=== PATIENT | male | born 1940 | race Caucasian/White ===

== ENCOUNTER 2016-11-09 08:43 | Inpatient (IN) | payer MEDICARE, OTHER ==
--- NOTE | ~2016-11-09 | OP ---
Record Of Operation [facility] [address] [place]. [address] NAME: LISA ARIZA : 38 STATUS : ADM IN PAT#: [id number] AGE: 76 ADM/REG DATE : 11/09/16 MR#: [id number] REPORT SERV DATE: 11/11/16 DICTATED BY: BEAN HAAS DATE: 11/11/16 REPORT STATUS : Draft TRANSCRIBED BY: MODL DATE: 11/11/16 DATE OF PROCEDURE: PROCEDURE: Small bowel enteroscopy. INDICATION: Upper GI bleed. MEDICATIONS: Propofol. DECORATIVE GREENS CUTTER: Bean Haas M.D. COMPLICATIONS: None. HISTORY: This 76-year-old man has a prior history of gastrointestinal bleeding. He presented this time two days ago with hematemesis, melena, anemia requiring transfusion, and transient hemodynamic impairment. An EGD was performed 48 hours ago and revealed no blood in the upper GI tract. There was marked malrotation of the stomach suspicious for a large hiatal hernia although the stomach did not appear to be intrathoracic on a barium study. We saw little bit of gastritis and a few linear erosions in the body of the stomach but no bleeding lesion was apparent and the bulb and descending duodenum appeared to be normal. He had some rebleeding last night with further drop in his hemoglobin but no real hemodynamic impairment. We went ahead and got a bleeding scan which suggested a proximal small bowel bleed. Arteriography was attempted but there was retained barium from an upper GI study he had earlier in the day, and the examination was very limited. There did not appear to be any active bleeding, and no therapeutic effort was made. He has now received a total of 7 units of packed red blood cells and his hemoglobin is up to 8 which has been his baseline. We decided to repeat endoscopic examination with a long enteroscope to try to make sure there is not anything further down the small bowel. The potential risks, including bleeding, medication reaction, perforation, or missed lesion were reviewed, and the patient elected to proceed. FINDINGS: Initially we passed the upper endoscope but then changed to a small-bowel enteroscope. Upon withdrawal of that instrument, we finally were able to locate the lesion at the apex of the duodenal bulb. We replaced the standard upper endoscope and examined it further before deciding it was not amenable to endoscopic therapy. FINDINGS: Are as below. 1. Esophagus-normal. 2. Stomach-notable for marked mal-rotation of the stomach. The cardiac impression is noted with a hyperdynamic heart beat in the distal antrum. This is suspicious for an intrathoracic stomach, however, barium study did not reveal stomach to be in the thorax. Some antral gastritis is present. The previously noted erosions were not seen. There was no blood in the stomach. A retroflex view of the GE junction was otherwise normal. 3. Duodenum: We noted an ulcer which was endoscopically photographed at the apex of the Record Of Operation [address] [address] NAME: LISA ARIZA : 38 STATUS : ADM IN PAT#: [id number] AGE: 76 ADM/REG DATE : 11/09/16 MR#: [id number] REPORT SERV DATE: 11/11/16 DICTATED BY: BEAN HAAS DATE: 11/11/16 REPORT STATUS : Draft TRANSCRIBED BY: MODL DATE: 11/11/16 duodenal bulb. It measured about 2 cm. It was fairly deep, and a visible vessel was seen. It was very oblique and initially could not be seen with a standard gastroscope and only with the enteroscope. When we replaced the gastroscope, we were able to find it but not really achieve adequate endoscopic access for therapeutic endeavors such as placing a clip. In fact, I feared that we may actually cause bleeding so no further therapy was done. 4. Jejunum: Examination to the mid-jejunum revealed no blood or bleeding lesion. IMPRESSION: Bleeding duodenal ulcer which has now stopped but after a total transfusion of 7 units of packed red blood cells. RECOMMENDATIONS: 1. Clear liquids for now. 2. Protonix infusion. 3. Keep arteriogram sheath in overnight. If he has further bleeding, I would proceed with therapeutic angiographic embolization. 4. Surgical intervention failing that. /MODL Bean Haas M.D. / [id number] CC: Anastasiya Ackerman M.D.
--- NOTE | ~2016-11-09 | CN ---
Consultation Report [facility] [address] [place]. [address] NAME: LISA ARIZA : 38 STATUS : ADM IN [facility]#: [id number] AGE: 76 ADM/REG DATE : 11/09/16 MR#: [id number] REPORT SERV DATE: 11/10/16 DICTATED BY: BOBBY MONTANA III DATE: 11/09/16 REPORT STATUS : Draft TRANSCRIBED BY: MODJolynn DATE: 11/09/16 CONSULTATION DATE OF CONSULTATION: 11/09/2016 CONSULTING PHYSICIAN: Martin Mcdaniel M.D. REASON FOR CONSULTATION: Anemia. HISTORY OF PRESENT ILLNESS: Mr. Ariza is a 76-year-old man who has a history of chronic GI blood loss who notes he developed one day of a large amount of bloody vomit as well as blood in his stool. He presented to the emergency department and was found to have a low hemoglobin of 4.9. He was admitted for further workup. An EGD was performed but did not find any evidence of active bleeding. Mr. Ariza notes that he has chronic severe acid reflux but this has been better in the past couple of weeks. He denies any recent weight loss. He says his appetite has been regular, and he does not drink alcohol excessively. PAST MEDICAL HISTORY: 1. Chronic kidney disease. 2. Diabetes. 3. Hyperlipidemia. MEDICATIONS: Current medications are per the home med list and were reviewed. ALLERGIES: NO KNOWN DRUG ALLERGIES. FAMILY HISTORY: Negative for any blood disorder that he is aware of. SOCIAL HISTORY: Negative for any alcohol abuse. He does smoke. REVIEW OF SYSTEMS: A comprehensive review of systems was performed and is negative unless noted in the HPI. PHYSICAL EXAMINATION: VITAL SIGNS: Blood pressure is 114/46, temperature is 97.5, pulse is 69, respiratory rate is 15. GENERAL: A well-developed elderly man in no acute distress. HEENT: Eyes: Pupils are round and reactive to light. There is no scleral icterus. Oropharynx is pink and moist. No oral lesions. NECK: Supple with no masses or thyroid enlargement. No JVD. CARDIOVASCULAR: Regular rate and rhythm. There is no peripheral edema. LUNGS: Clear to auscultation bilaterally with normal respiratory effort. ABDOMEN: Soft, nondistended, nontender with no hepatosplenomegaly. SKIN: Warm and dry with good skin turgor. There is no jaundice. Consultation Report [facility] [address] [place]. [address] NAME: LISA ARIZA : 38 STATUS : ADM IN PAT#: [id number] AGE: 76 ADM/REG DATE : 11/09/16 MR#: [id number] REPORT SERV DATE: 11/10/16 DICTATED BY: BOBBY MONTANA III DATE: 11/09/16 REPORT STATUS : Draft TRANSCRIBED BY: MODL DATE: 11/09/16 PSYCH: He is alert, oriented, and comprehends our conversation with normal judgment and affect. LABORATORY DATA: His admission labs were reviewed. The GI notes were reviewed. ASSESSMENT AND PLAN: Anemia. We will check vitamin levels as well as LDH and direct Sergio test and reticulocyte count. We will follow H and H, and transfuse as needed. We will continue to follow Mr. Ariza while he is an inpatient. BMA/MARBELLA Bobby Montana III, M.D. / [id number] CC: Anastasiya Ackerman M.D.
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
--- NOTE | ~2016-11-09 | CN ---
Consultation Report [address] [place]. [address] NAME: LISA ARIZA : 38 STATUS : ADM IN PAT#: [id number] AGE: 76 ADM/REG DATE : 11/09/16 MR#: [id number] REPORT SERV DATE: 11/09/16 DICTATED BY: BEAN HAAS DATE: 11/09/16 REPORT STATUS : Draft TRANSCRIBED BY: MODL DATE: 11/09/16 INPATIENT CONSULTATION DATE OF CONSULTATION: 11/09/2016 HISTORY OF PRESENT ILLNESS: This is a 76-year-old man who I am asked to see for nausea, vomiting, hematemesis, suspicious for acute bleeding. This gentleman is known from prior evaluation. He has a prior history of Helicobacter gastritis, peptic ulcer disease, and a large hiatal hernia with prior partial gastric volvulus. He is also chronically anemic with a baseline hemoglobin of about 8. He got sick this morning and vomited up some dark material a couple of times. His stools have been chronically black on iron therapy. He is on Plavix as well. When he presented to the emergency room, his hemoglobin was 4.9. Orders for transfusion were entered, but he has not yet been transfused as there has been some autoantibodies preventing transfusion. He is given a liter of crystalloid and he is now hemodynamically stable with blood pressure 129/65, pulse 67. PAST MEDICAL HISTORY: 1. Peptic ulcer disease. 2. History of Helicobacter pylori gastritis. 3. Iron deficiency anemia. 4. Adenomatous colon polyps. 5. Coronary artery disease. 6. Nephrolithiasis. 7. Hyperlipidemia. 8. CVA in 2012. 9. Renal cell cancer. 10.Chronic kidney disease. 11.COPD. 12.BPH. 13.Insulin-dependent diabetes. 14.Depression. PAST SURGICAL HISTORY: Status post CABG 2013 status post right nephrectomy, status post cholecystectomy by Dr. Acuna. MEDICATIONS: Reviewed and include Plavix as well as a proton pump. ALLERGIES: NO KNOWN DRUG ALLERGIES. FAMILY HISTORY: No GI malignancies. SOCIAL HISTORY: He is and retired. He does not abuse alcohol. He continues to Consultation Report [address] [place]. [address] NAME: LISA ARIZA : 38 STATUS : ADM IN PAT#: [id number] AGE: 76 ADM/REG DATE : 11/09/16 MR#: [id number] REPORT SERV DATE: 11/09/16 DICTATED BY: BEAN HAAS DATE: 11/09/16 REPORT STATUS : Draft TRANSCRIBED BY: MARBELLA DATE: 11/09/16 smoke. REVIEW OF SYSTEMS: Otherwise unremarkable for constitutional, endocrine, neurologic, psychiatric, ocular, ENT, pulmonary, cardiovascular, GI, , or rheumatologic symptoms except for as noted above. PHYSICAL EXAMINATION: GENERAL: He is alert and oriented, resting comfortably in bed. VITAL SIGNS: Blood pressure 139/65, pulse 67. LUNGS: Notable for decreased breath sounds over all lung andrade. ABDOMEN: Soft, nontender, without organomegaly. EXTREMITIES: No edema. LABORATORY DATA: Sodium 144, potassium 4.4, BUN 71, creatinine 1.91, albumin 2.1, and hemoglobin 4.9, compared to a baseline hemoglobin of 8 last month. INR 1.3. White count normal. PRIOR ENDOSCOPIES: EGD 10/12/2014-this was also in the setting of a subacute bleed and revealed a large hiatal hernia with some gastric torsion and a superficial 8 mm duodenal ulcer. EGD 03/04/2013, revealed hiatal hernia, gastritis, normal small bowel biopsy. Colonoscopy 03/04/2013, revealed a fair bowel prep, internal hemorrhoids, and a cecal adenoma, which was removed. RADIOGRAPHIC STUDIES: Upper GI in 2014 revealed a partial gastric volvulus. IMPRESSION: Large hiatal hernia with prior history of partial gastric volvulus and recent hematemesis, now with hemodynamic stability. RECOMMENDATIONS: We will proceed with EGD later today. /MARBELLA Bean Haas M.D. / [id number] CC: Martin Mcdaniel M.D. Anastasiya Lomas M.D.
--- NOTE | ~2016-11-09 | DS ---
Discharge Summary [facility] [address] [place]. [address] NAME: LISA ARIZA : 38 STATUS : DIS IN PAT#: [id number] AGE: 76 ADM/REG DATE : 11/09/16 MR#: [id number] REPORT SERV DATE: 11/17/16 DICTATED BY: BREE REDDY DATE: 11/16/16 REPORT STATUS : Draft TRANSCRIBED BY: MODL DATE: 11/16/16 ADMISSION DATE: 11/09/2016 DISCHARGE DATE: 11/16/2016 The patient is a 76-year-old male with a history of hypertension, diabetes type 2, and CKD who presented to the emergency room with complaints of hematemesis and hematochezia, and was subsequently admitted and managed in the ICU. For further details, please refer to H and P dictated by Dr. Mcdaniel on November 10, 2016. HOSPITAL COURSE: The patient was admitted on the and managed in the ICU between the and . For further details please refer to interim discharge summary dictated by Dr. Cardoza on November 14, 2016. I assumed care of the patient on November 15, 2016. At the time of my assumption of care, the patient had been transferred from the ICU to the medical floor. The patient was hemodynamically stable with resolution of his hematemesis and hematochezia. Given his significant medical history, his antiplatelet and anticoagulants were held. The patient is currently hemodynamically stable. He has been cleared by Cardiology for discharge. Given his hemodynamic stability and resolution of presenting complaint, the patient will be discharged home to follow up with Cardiology in two weeks and to follow up with primary care physician in one week. DISCHARGE DIAGNOSES: 1. Anemia secondary to acute blood loss. 2. Diabetes type 2. 3. Hypertension. 4. Coronary artery disease. 5. JUWAN. 6. CKD stage 3. 7. Polymyalgia rheumatica. DISCHARGE EXAM: VITAL SIGNS: Blood pressure 140/64, pulse of 66, respiration 18, O2 saturation 97% on room air. The patient is currently afebrile with a temperature 98.4. GENERAL: The patient is sitting in bed, in no acute distress. Appears stated age. HEENT: Normocephalic, atraumatic. Extraocular motors intact. Pupils are reactive to light and accommodation. Anicteric sclerae. No conjunctival pallor present. NECK: Trachea midline, symmetric. No JVD present. No thyromegaly noted. CHEST: Nontender to palpation. CARDIOVASCULAR: Regular rate and rhythm. S1, S2. I did not appreciate any murmurs. LUNGS: Clear to auscultation bilaterally. No added breath sounds. ABDOMEN: Flat, soft. Positive bowel sounds. Nontender. Nondistended. EXTREMITIES: Positive 1+ pitting edema noted up to the knees consistent with venous stasis. NEUROLOGIC: Alert and oriented x3. No focal deficits appreciated. DISPOSITION: The patient will be discharged home. ACTIVITY: As tolerated. Discharge Summary [place] [id number] [facility] [place]. [address] NAME: LISA ARIZA : 38 STATUS : DIS IN PAT#: [id number] AGE: 76 ADM/REG DATE : 11/09/16 MR#: [id number] REPORT SERV DATE: 11/17/16 DICTATED BY: BREE REDDY DATE: 11/16/16 REPORT STATUS : Draft TRANSCRIBED BY: MARBELLA DATE: 11/16/16 DIET: Cardiac diet. Greater than 30 minutes was spent writing prescription, medication reconciliation, chart review, discharge coordination, and planning. ELLIE/MARBELLA Bree Reddy MD / [id number] CC: MD Billie Aldana M.D.
--- NOTE | ~2016-11-09 | OP ---
Record Of Operation [facility] [address] [place]. [address] NAME: LISA ARIZA : 38 STATUS : ADM IN [facility]#: [id number] AGE: 76 ADM/REG DATE : 11/09/16 MR#: [id number] REPORT SERV DATE: 11/09/16 DICTATED BY: BEAN HAAS DATE: 11/09/16 REPORT STATUS : Draft TRANSCRIBED BY: MODL DATE: 11/09/16 DATE OF PROCEDURE: 11/09/2016 PROCEDURE: Esophagogastroduodenoscopy. INDICATION: Hematemesis. MEDICATIONS: Propofol. INSIDE BARREL POLISHER: Bean Haas M.D. COMPLICATIONS: None. HISTORY: See consult note for details. The potential risks and limitations were reviewed with the patient including bleeding, medication reaction, perforation, and he elected to proceed. FINDINGS: Examination of the esophagus, stomach, duodenal was performed including a retroflexed view of the GE junction. There was absolutely no blood in the upper GI tract. The most striking finding was a very large hiatal hernia with some torsion of the stomach. The cardiac compression was seen in the distal antrum near the pylorus indicating the vast majority of stomach was intrathoracic. There were some linear erosions to the body of the stomach consistent with Yon's erosions. There was no bleeding lesion in the duodenum. IMPRESSION: 1. Large hiatal horn hernia with torsion and probable recent partial volvulus. 2. Chronic gastrointestinal blood loss due to above, but no evidence of acute bleeding. RECOMMENDATIONS: 1. Continue proton pump inhibitor therapy. 2. Start clear liquid diet. 3. Transfuse. /MARBELLA Bean Haas M.D. / [id number] CC: Martin Mcdaniel M.D. Anastasiya Lomas M.D.
--- NOTE | ~2016-11-09 | IDS ---
Interim Discharge Summary [facility] [address] [place]. [address] NAME: LISA ARIZA : 38 STATUS : ADM IN PAT#: [id number] AGE: 76 ADM/REG DATE : 11/09/16 MR#: [id number] REPORT SERV DATE: 11/14/16 DICTATED BY: ZHAO SEVILLA DATE: 11/14/16 REPORT STATUS : Draft TRANSCRIBED BY: MODL DATE: 11/14/16 ADMISSION DATE: 11/09/2016 DISCHARGE DATE: The patient was admitted on 11/09/[address] Mcdaniel for upper GI bleeding. He has a previous history of the same. He has underlying history of H pylori as well as gastritis, peptic ulcer disease, and large hiatal hernia with prior partial gastric volvulus. He is chronically anemic with a baseline hemoglobin around 8. He is followed by Dr. Rosa for coronary artery disease and his home Plavix is currently being held due to bleeding concerns. He has been transfused. Coagulopathy has been corrected and he is now tolerating room air and a diet, and is ready to move to the floor. PROBLEM LIST: 1. Status post GI bleed with associated acute blood loss anemia. He is status post EGD as well as bleeding scan and multiple transfusions. There is no active bleeding at this point. His H and H are stable. GI continues to follow him closely. He is on Protonix and Carafate daily. 2. Coronary artery disease with previous coronary artery bypass grafting surgery and associated ischemic cardiomyopathy with some sinus bradycardia. During this admission, he is stable, and Dr. Rosa is following him along. 3. Polymyalgia rheumatica. He is on chronic prednisone and has been on stress-dose steroids, which we continue to wean. He will be weaned down to 25 mg q.12 hours today. 4. Type 2 diabetes mellitus. His blood sugars have been somewhat erratic. We will continue with sliding scale insulin, Levemir as he is tolerating a full diet including a large pasta lunch today. 5. Hypertension, which has been difficult to control. We will increase his amlodipine from 5-10 mg. Discontinue the nitroglycerin topical, which was placed via the night and continue p.r.n. clonidine per previous orders. 6. Chronic kidney disease, stable creatinine, avoid nephrotoxins. 7. He is a full code. Morning labs have been ordered. He will begin to work with Physical Therapy. We will stop his maintenance fluids and remove his Loaiza catheter. He will transferred to a telemetry bed and into the hospital medicine service, whose navigator has already been notified. Please call with questions. VINCE/MARBELLA Zhao Sevilla MD / [id number] CC: Martin Mcdaniel M.D. Interim Discharge Summary [address] [address] NAME: LISA ARIZA : 38 STATUS : ADM IN [facility]#: [id number] AGE: 76 ADM/REG DATE : 11/09/16 MR#: [id number] REPORT SERV DATE: 11/14/16 DICTATED BY: ZHAO SEVILLA DATE: 11/14/16 REPORT STATUS : Draft TRANSCRIBED BY: MARBELLA DATE: 11/14/16 Billie Olsen M.D.
[~2016-11-09 08:43] MED LIST: ACET500CAP PO; AMARYL1 MG PO; ASAB PO; AVANDIA8 MG PO; B12250T PO; CELEXA20 PO; CLARIT10 PO; COREG3 PO; CYANO1000T PO; DIABETA5 PO; EYE INJECTIONS; FEOSOL200 MG PO; FERROUS SULF325 M1 PO; FLONASE NAS; GLUCPH PO; HABIT14 TOP; HYDROCHLOROT25 MG PO; IRON325 MG PO; K-TABS10 MEQ PO; L20 PO; L40 PO; LANTUS SC; LANTUSCART SC; LEVAQUIN750 MG PO; LIPITOR80 MG PO; LOP25 PO; LORTAB 5 PO; METAMUCIL CAN7 OZ PO; METPAKSF PO; MIRALAXPKT PO; NATURA2 OP; NEUR300 PO; NORV25 PO; NORV5 PO; NOVOLOG SC; NOVOPEN SC; P5 PO; PEP20 PO; PLAVIX PO; PRILO PO; PRILOSEC40 MG PO; PRIN5 PO; ROCALTROL 0.0.25 MCG PO; ROCALTROL0.25 MCG OR; ROCALTROL0.25 MCG PO; SLO-FE PO; SUCR PO; SYSTANE OPH; VISINE0.05 % OPH; VITAMIN B-121000 MC1 PO; VITAMIN D1000 UNI1 PO; VITAMIN D31000 UNIT PO; XYZAL5 MG PO; ZOL100 PO
[2016-11-09 09:04] LABS: BASOPHILS 0.3 %; BASOPHILS ABSOLUTE 0.03 10/3/uL (0.0-0.16); EOSINOPHILS 2.1 %; EOSINOPHILS ABSOLUTE 0.18 10/3/uL (0.0-0.53); ER CBC TAT 0 Hrs 05 Mins; IMMATURE GRANULOCYTES 0.2 %; IMMATURE GRANULOCYTES ABSOLUTE 0.02 10/3/uL (0.0-0.11); LYMPHOCYTES 40.4 %; LYMPHOCYTES ABSOLUTE 3.49 10/3/uL (0.67-4.30); MEAN CORPUS HGB CONC 31.6 g/dL (32.0-36.0); MEAN CORPUSCULAR HEMOGLOB 30.6 pg (26.0-34.0); MEAN CORPUSCULAR VOLUME 96.9 fL (80-100); MEAN PLATELET VOLUME 9.4 fL (9.2-13.0); MONOCYTES 8.9 %; MONOCYTES ABSOLUTE 0.77 10/3/uL (0.21-1.20); NEUTROPHILS 48.1 %; NEUTROPHILS ABSOLUTE 4.15 10/3/uL (2.02-8.40); PLATELET COUNT 295 10/3/uL (150-400); RBC DISTRIBUTION WIDTH 15.9 % (12.0-16.0); WHITE BLOOD CELLS 8.6 10/3/uL (4.5-10.5)
[2016-11-09 09:05] LABS: HEMATOCRIT 15.5 % (40.0-51.0); HEMOGLOBIN 4.9 g/dL (13.6-17.8)
[2016-11-09 09:07] LABS: MANUAL DIFF NO %
[2016-11-09 09:10] LABS: INTERNATIONAL NORMAL RATI 1.3 UNITS (-); PARTIAL THROMBO TIME 23.3 SEC (22.5-37.2)
[2016-11-09 09:11] LABS: PROTIME (NOT ORD) 16.2 SEC (12.0-14.5)
[2016-11-09 09:20] LABS: A/G RATIO 0.9 (0.7-1.9); ALBUMIN 2.1 G/DL (3.5-5.0); ALKALINE PHOSPHATASE 117 U/L (45-117); BUN (BLOOD UREA NITROGEN) 71 MG/DL (6-23); CALCIUM, SERUM 7.5 MG/DL (8.5-10.4); CHLORIDE, SERUM 113 MMOL/L (96-112); CO2 (CARBON DIOXIDE) 20 MMOL/L (24-34); CREATININE 1.91 MG/DL (0.70-1.30); GFR AFRICAN AMERICAN 38 ML/MIN (>=60); GFR NON AFRICAN AMERICAN 33 ML/MIN (>=60); GLOBULIN 2.4 G/DL (2.5-4.1); GLUCOSE, SERUM 287 MG/DL (60-99); POTASSIUM, SERUM 4.4 MMOL/L (3.5-5.3); SGOT(AST) 17 U/L (5-40); SGPT(ALT) 21 U/L (5-65); SODIUM, SERUM 144 MMOL/L (135-148); TOTAL BILIRUBIN 0.2 MG/DL (0-1.2); TOTAL PROTEIN 4.5 G/DL (6.0-8.5)
[2016-11-09] MEDS ORDERED: FERROUS GLUCONATE PO (10:20)
[2016-11-09] MEDS ORDERED: CELEXA20 PO (10:21)
[2016-11-09] MEDS ORDERED: PLAVIX PO (10:21)
[2016-11-09] MEDS ORDERED: P5 PO (10:21)
[2016-11-09] MEDS ORDERED: VITAMIN D1000 UNI1 PO (10:22)
[2016-11-09] MEDS ORDERED: NEUR300 PO (10:22)
[2016-11-09] MEDS ORDERED: LIPITOR80 MG PO (10:22)
[2016-11-09] MEDS ORDERED: XYZAL5 MG PO (10:22)
[2016-11-09] MEDS ORDERED: PRILOSEC40 MG PO (10:23)
[2016-11-09] MEDS ORDERED: EYE INJECTION IJ (10:23)
[2016-11-09 21:31] LABS: HEMATOCRIT 22.4 % (40.0-51.0); HEMOGLOBIN 7.2 g/dL (13.6-17.8)
[2016-11-10 03:27] LABS: BASOPHILS 0.2 %; BASOPHILS ABSOLUTE 0.02 10/3/uL (0.0-0.16); EOSINOPHILS 2.1 %; EOSINOPHILS ABSOLUTE 0.19 10/3/uL (0.0-0.53); IMMATURE GRANULOCYTES 0.3 %; IMMATURE GRANULOCYTES ABSOLUTE 0.03 10/3/uL (0.0-0.11); LYMPHOCYTES 33.9 %; LYMPHOCYTES ABSOLUTE 3.02 10/3/uL (0.67-4.30); MEAN CORPUSCULAR HEMOGLOB 31.6 pg (26.0-34.0); MEAN CORPUSCULAR VOLUME 94.2 fL (80-100); MEAN PLATELET VOLUME 9.2 fL (9.2-13.0); MONOCYTES 9.5 %; MONOCYTES ABSOLUTE 0.85 10/3/uL (0.21-1.20); PLATELET COUNT 215 10/3/uL (150-400); RBC DISTRIBUTION WIDTH 15.8 % (12.0-16.0); WHITE BLOOD CELLS 8.9 10/3/uL (4.5-10.5)
[2016-11-10 03:28] LABS: HEMATOCRIT 19.4 % (40.0-51.0); HEMOGLOBIN 6.5 g/dL (13.6-17.8); MANUAL DIFF NO %; MEAN CORPUS HGB CONC 33.5 g/dL (32.0-36.0); RED CELL COUNT 2.06 10/6/uL (4.7-6.1); RETICULOCYTE COUNT 4.3 % (0.5-2.5); RETICULOCYTE COUNT ABSOLUTE 89.2 10/3/uL (20.2-119.8)
[2016-11-10 04:10] LABS: BUN (BLOOD UREA NITROGEN) 65 MG/DL (6-23); CALCIUM, SERUM 7.6 MG/DL (8.5-10.4); CHLORIDE, SERUM 115 MMOL/L (96-112); CO2 (CARBON DIOXIDE) 25 MMOL/L (24-34); CREATININE 1.71 MG/DL (0.70-1.30); FERRITIN 46 NG/ML (26-388); FOLATE 14.7 NG/ML (>5.2); GFR AFRICAN AMERICAN 43 ML/MIN (>=60); GFR NON AFRICAN AMERICAN 38 ML/MIN (>=60); GLUCOSE, SERUM 106 MG/DL (60-99); IRON BINDING CAPACITY 210 MCG/DL (250-450); POTASSIUM, SERUM 5.3 MMOL/L (3.5-5.3); SODIUM, SERUM 145 MMOL/L (135-148)
[2016-11-10 10:33] LABS: IRON, SERUM 173 MCG/DL (35-150)
[2016-11-10 10:45] LABS: HEMATOCRIT 23.9 % (40.0-51.0)
[2016-11-10 15:04] LABS: HEMATOCRIT 17.1 % (40.0-51.0); HEMOGLOBIN 5.6 g/dL (13.6-17.8)
[2016-11-11 00:23] LABS: BASOPHILS 0.1 %; BASOPHILS ABSOLUTE 0.01 10/3/uL (0.0-0.16); EOSINOPHILS 0 %; HEMATOCRIT 21.3 % (40.0-51.0); HEMOGLOBIN 7.2 g/dL (13.6-17.8); IMMATURE GRANULOCYTES 0.3 %; IMMATURE GRANULOCYTES ABSOLUTE 0.03 10/3/uL (0.0-0.11); LYMPHOCYTES 13.4 %; LYMPHOCYTES ABSOLUTE 1.15 10/3/uL (0.67-4.30); MANUAL DIFF NO %; MEAN CORPUS HGB CONC 33.8 g/dL (32.0-36.0); MEAN CORPUSCULAR HEMOGLOB 30.9 pg (26.0-34.0); MEAN CORPUSCULAR VOLUME 91.4 fL (80-100); MEAN PLATELET VOLUME 9.7 fL (9.2-13.0); MONOCYTES 4.9 %; MONOCYTES ABSOLUTE 0.42 10/3/uL (0.21-1.20); NEUTROPHILS 81.3 %; NEUTROPHILS ABSOLUTE 6.97 10/3/uL (2.02-8.40); PLATELET COUNT 138 10/3/uL (150-400); RBC DISTRIBUTION WIDTH 14.9 % (12.0-16.0); RED CELL COUNT 2.33 10/6/uL (4.7-6.1); WHITE BLOOD CELLS 8.6 10/3/uL (4.5-10.5)
[2016-11-11 06:25] LABS: BASOPHILS 0.1 %; BASOPHILS ABSOLUTE 0.01 10/3/uL (0.0-0.16); EOSINOPHILS 0 %; IMMATURE GRANULOCYTES 0.4 %; IMMATURE GRANULOCYTES ABSOLUTE 0.04 10/3/uL (0.0-0.11); LYMPHOCYTES 20.4 %; LYMPHOCYTES ABSOLUTE 2.09 10/3/uL (0.67-4.30); MEAN CORPUS HGB CONC 33.8 g/dL (32.0-36.0); MEAN CORPUSCULAR HEMOGLOB 30.5 pg (26.0-34.0); MEAN CORPUSCULAR VOLUME 90.5 fL (80-100); MEAN PLATELET VOLUME 9.8 fL (9.2-13.0); MONOCYTES 9.7 %; NEUTROPHILS 69.4 %; NEUTROPHILS ABSOLUTE 7.13 10/3/uL (2.02-8.40); PLATELET COUNT 150 10/3/uL (150-400); RBC DISTRIBUTION WIDTH 15.3 % (12.0-16.0); RED CELL COUNT 2.62 10/6/uL (4.7-6.1); WHITE BLOOD CELLS 10.3 10/3/uL (4.5-10.5)
[2016-11-11 06:26] LABS: HEMATOCRIT 23.7 % (40.0-51.0); MANUAL DIFF NO %
[2016-11-11 06:27] LABS: ALBUMIN 1.8 G/DL (3.5-5.0); BUN (BLOOD UREA NITROGEN) 68 MG/DL (6-23); CALCIUM, SERUM 7.3 MG/DL (8.5-10.4); CHLORIDE, SERUM 112 MMOL/L (96-112); CO2 (CARBON DIOXIDE) 21 MMOL/L (24-34); CREATININE 1.88 MG/DL (0.70-1.30); GFR AFRICAN AMERICAN 39 ML/MIN (>=60); GFR NON AFRICAN AMERICAN 33 ML/MIN (>=60); PHOSPHORUS, SERUM 3.3 MG/DL (2.5-4.5); POTASSIUM, SERUM 5.6 MMOL/L (3.5-5.3); SODIUM, SERUM 141 MMOL/L (135-148)
[2016-11-11 06:28] LABS: GLUCOSE, SERUM 272 MG/DL (60-99)
[2016-11-11 15:49] LABS: BUN (BLOOD UREA NITROGEN) 67 MG/DL (6-23); CHLORIDE, SERUM 114 MMOL/L (96-112); CO2 (CARBON DIOXIDE) 23 MMOL/L (24-34); CREATININE 1.87 MG/DL (0.70-1.30); GFR AFRICAN AMERICAN 39 ML/MIN (>=60); GFR NON AFRICAN AMERICAN 34 ML/MIN (>=60); POTASSIUM, SERUM 5.1 MMOL/L (3.5-5.3); SODIUM, SERUM 145 MMOL/L (135-148)
[2016-11-11 15:50] LABS: GLUCOSE, SERUM 101 MG/DL (60-99)
[2016-11-11 20:00] LABS: HEMOGLOBIN 8.8 g/dL (13.6-17.8)
[2016-11-11 20:02] LABS: HEMATOCRIT 26.9 % (40.0-51.0)
[2016-11-12 04:20] LABS: BASOPHILS 0.2 %; BASOPHILS ABSOLUTE 0.02 10/3/uL (0.0-0.16); EOSINOPHILS 1.4 %; EOSINOPHILS ABSOLUTE 0.16 10/3/uL (0.0-0.53); HEMOGLOBIN 7.8 g/dL (13.6-17.8); IMMATURE GRANULOCYTES 0.3 %; IMMATURE GRANULOCYTES ABSOLUTE 0.04 10/3/uL (0.0-0.11); LYMPHOCYTES 30.5 %; MANUAL DIFF NO %; MEAN CORPUS HGB CONC 32.5 g/dL (32.0-36.0); MEAN CORPUSCULAR HEMOGLOB 29.4 pg (26.0-34.0); MEAN CORPUSCULAR VOLUME 90.6 fL (80-100); MEAN PLATELET VOLUME 9.9 fL (9.2-13.0); MONOCYTES 11.5 %; MONOCYTES ABSOLUTE 1.32 10/3/uL (0.21-1.20); NEUTROPHILS 56.1 %; NEUTROPHILS ABSOLUTE 6.42 10/3/uL (2.02-8.40); PLATELET COUNT 163 10/3/uL (150-400); RBC DISTRIBUTION WIDTH 15.8 % (12.0-16.0); RED CELL COUNT 2.65 10/6/uL (4.7-6.1); WHITE BLOOD CELLS 11.5 10/3/uL (4.5-10.5)
[2016-11-12 04:28] LABS: CALCIUM, SERUM 7.8 MG/DL (8.5-10.4); CHLORIDE, SERUM 115 MMOL/L (96-112); CO2 (CARBON DIOXIDE) 21 MMOL/L (24-34); CREATININE 1.76 MG/DL (0.70-1.30); GFR AFRICAN AMERICAN 42 ML/MIN (>=60); GFR NON AFRICAN AMERICAN 36 ML/MIN (>=60); POTASSIUM, SERUM 4.9 MMOL/L (3.5-5.3); SODIUM, SERUM 144 MMOL/L (135-148)
[2016-11-12 04:29] LABS: BUN (BLOOD UREA NITROGEN) 60 MG/DL (6-23); GLUCOSE, SERUM 141 MG/DL (60-99)
[2016-11-12 07:53] LABS: HEMATOCRIT 27.4 % (40.0-51.0)
[2016-11-12 15:01] LABS: HEMATOCRIT 29.1 % (40.0-51.0); HEMOGLOBIN 9.7 g/dL (13.6-17.8)
[2016-11-12 21:15] LABS: HEMATOCRIT 26.8 % (40.0-51.0); HEMOGLOBIN 8.9 g/dL (13.6-17.8)
[2016-11-13 04:23] LABS: BASOPHILS 0.1 %; BASOPHILS ABSOLUTE 0.01 10/3/uL (0.0-0.16); EOSINOPHILS 0.2 %; EOSINOPHILS ABSOLUTE 0.02 10/3/uL (0.0-0.53); HEMATOCRIT 29.3 % (40.0-51.0); HEMOGLOBIN 9.8 g/dL (13.6-17.8); IMMATURE GRANULOCYTES 0.4 %; IMMATURE GRANULOCYTES ABSOLUTE 0.03 10/3/uL (0.0-0.11); LYMPHOCYTES 19.3 %; LYMPHOCYTES ABSOLUTE 1.62 10/3/uL (0.67-4.30); MEAN CORPUS HGB CONC 33.4 g/dL (32.0-36.0); MEAN CORPUSCULAR VOLUME 92.7 fL (80-100); MEAN PLATELET VOLUME 9.9 fL (9.2-13.0); MONOCYTES 6.7 %; MONOCYTES ABSOLUTE 0.56 10/3/uL (0.21-1.20); NEUTROPHILS 73.3 %; NEUTROPHILS ABSOLUTE 6.15 10/3/uL (2.02-8.40); PLATELET COUNT 184 10/3/uL (150-400); RBC DISTRIBUTION WIDTH 16.2 % (12.0-16.0); RED CELL COUNT 3.16 10/6/uL (4.7-6.1); WHITE BLOOD CELLS 8.4 10/3/uL (4.5-10.5)
[2016-11-13 04:25] LABS: MANUAL DIFF NO %
[2016-11-13 04:40] LABS: CHLORIDE, SERUM 113 MMOL/L (96-112); CO2 (CARBON DIOXIDE) 20 MMOL/L (24-34); GFR AFRICAN AMERICAN 55 ML/MIN (>=60); GFR NON AFRICAN AMERICAN 48 ML/MIN (>=60); PHOSPHORUS, SERUM 3.9 MG/DL (2.5-4.5); POTASSIUM, SERUM 4.7 MMOL/L (3.5-5.3); SODIUM, SERUM 143 MMOL/L (135-148)
[2016-11-13 04:42] LABS: BUN (BLOOD UREA NITROGEN) 43 MG/DL (6-23); GLUCOSE, SERUM 57 MG/DL (60-99)
[2016-11-13 08:05] LABS: HEMATOCRIT 27.9 % (40.0-51.0)
[2016-11-13 14:13] LABS: HEMATOCRIT 27.3 % (40.0-51.0); HEMOGLOBIN 9.2 g/dL (13.6-17.8)
[2016-11-13 22:13] LABS: HEMATOCRIT 29.1 % (40.0-51.0); HEMOGLOBIN 9.6 g/dL (13.6-17.8)
[2016-11-14 04:17] LABS: BASOPHILS 0.1 %; BASOPHILS ABSOLUTE 0.01 10/3/uL (0.0-0.16); EOSINOPHILS 0.1 %; EOSINOPHILS ABSOLUTE 0.01 10/3/uL (0.0-0.53); HEMATOCRIT 31.4 % (40.0-51.0); HEMOGLOBIN 10.4 g/dL (13.6-17.8); IMMATURE GRANULOCYTES 0.4 %; IMMATURE GRANULOCYTES ABSOLUTE 0.03 10/3/uL (0.0-0.11); LYMPHOCYTES 15.5 %; MEAN CORPUS HGB CONC 33.1 g/dL (32.0-36.0); MEAN CORPUSCULAR HEMOGLOB 31.2 pg (26.0-34.0); MEAN CORPUSCULAR VOLUME 94.3 fL (80-100); MEAN PLATELET VOLUME 9.8 fL (9.2-13.0); MONOCYTES 4.9 %; MONOCYTES ABSOLUTE 0.41 10/3/uL (0.21-1.20); NEUTROPHILS ABSOLUTE 6.64 10/3/uL (2.02-8.40); PLATELET COUNT 235 10/3/uL (150-400); RBC DISTRIBUTION WIDTH 16.9 % (12.0-16.0); RED CELL COUNT 3.33 10/6/uL (4.7-6.1); WHITE BLOOD CELLS 8.4 10/3/uL (4.5-10.5)
[2016-11-14 04:18] LABS: MANUAL DIFF NO %
[2016-11-14 04:29] LABS: CALCIUM, SERUM 8.4 MG/DL (8.5-10.4); CHLORIDE, SERUM 112 MMOL/L (96-112); CO2 (CARBON DIOXIDE) 23 MMOL/L (24-34); CREATININE 1.54 MG/DL (0.70-1.30); GFR AFRICAN AMERICAN 49 ML/MIN (>=60); GFR NON AFRICAN AMERICAN 43 ML/MIN (>=60); PHOSPHORUS, SERUM 3.3 MG/DL (2.5-4.5); POTASSIUM, SERUM 5.1 MMOL/L (3.5-5.3); SODIUM, SERUM 144 MMOL/L (135-148)
[2016-11-14 04:42] LABS: BUN (BLOOD UREA NITROGEN) 39 MG/DL (6-23); GLUCOSE, SERUM 102 MG/DL (60-99)
[2016-11-14 13:52] LABS: HEMATOCRIT 29.4 % (40.0-51.0); HEMOGLOBIN 9.4 g/dL (13.6-17.8)
[2016-11-14 21:21] LABS: HEMATOCRIT 29.5 % (40.0-51.0); HEMOGLOBIN 9.3 g/dL (13.6-17.8)
[2016-11-15 05:17] LABS: HEMATOCRIT 28.5 % (40.0-51.0); HEMOGLOBIN 9.5 g/dL (13.6-17.8)
[2016-11-15 06:57] LABS: HEMATOCRIT 30.3 % (40.0-51.0)
[2016-11-15 13:39] LABS: HEMATOCRIT 32.5 % (40.0-51.0); HEMOGLOBIN 10.8 g/dL (13.6-17.8)
[2016-11-15 18:41] LABS: BUN (BLOOD UREA NITROGEN) 42 MG/DL (6-23); CALCIUM, SERUM 7.9 MG/DL (8.5-10.4); CHLORIDE, SERUM 109 MMOL/L (96-112); CO2 (CARBON DIOXIDE) 25 MMOL/L (24-34); PHOSPHORUS, SERUM 2.8 MG/DL (2.5-4.5); POTASSIUM, SERUM 5.3 MMOL/L (3.5-5.3); SODIUM, SERUM 141 MMOL/L (135-148)
[2016-11-15 18:42] LABS: ALBUMIN 2.4 G/DL (3.5-5.0); CREATININE 2.26 MG/DL (0.70-1.30); GFR AFRICAN AMERICAN 31 ML/MIN (>=60); GFR NON AFRICAN AMERICAN 27 ML/MIN (>=60); GLUCOSE, SERUM 348 MG/DL (60-99)
[2016-11-15 20:30] LABS: HEMATOCRIT 29.6 % (40.0-51.0); HEMOGLOBIN 9.6 g/dL (13.6-17.8)
[2016-11-16 06:32] LABS: BASOPHILS 0.1 %; BASOPHILS ABSOLUTE 0.01 10/3/uL (0.0-0.16); EOSINOPHILS 0.8 %; EOSINOPHILS ABSOLUTE 0.08 10/3/uL (0.0-0.53); HEMATOCRIT 30.4 % (40.0-51.0); HEMOGLOBIN 9.9 g/dL (13.6-17.8); IMMATURE GRANULOCYTES 0.2 %; IMMATURE GRANULOCYTES ABSOLUTE 0.02 10/3/uL (0.0-0.11); LYMPHOCYTES 24.3 %; LYMPHOCYTES ABSOLUTE 2.36 10/3/uL (0.67-4.30); MEAN CORPUS HGB CONC 32.6 g/dL (32.0-36.0); MEAN CORPUSCULAR VOLUME 95.3 fL (80-100); MEAN PLATELET VOLUME 9.8 fL (9.2-13.0); MONOCYTES 9.2 %; NEUTROPHILS 65.4 %; NEUTROPHILS ABSOLUTE 6.36 10/3/uL (2.02-8.40); RED CELL COUNT 3.19 10/6/uL (4.7-6.1); WHITE BLOOD CELLS 9.7 10/3/uL (4.5-10.5)
[2016-11-16 06:34] LABS: MANUAL DIFF NO %; PLATELET COUNT 325 10/3/uL (150-400)
[2016-11-16 06:50] LABS: A/G RATIO 0.9 (0.7-1.9); ALBUMIN 2.6 G/DL (3.5-5.0); ALKALINE PHOSPHATASE 122 U/L (45-117); BUN (BLOOD UREA NITROGEN) 42 MG/DL (6-23); CALCIUM, SERUM 8.3 MG/DL (8.5-10.4); CHLORIDE, SERUM 109 MMOL/L (96-112); CO2 (CARBON DIOXIDE) 26 MMOL/L (24-34); CREATININE 2.05 MG/DL (0.70-1.30); GFR AFRICAN AMERICAN 35 ML/MIN (>=60); GFR NON AFRICAN AMERICAN 30 ML/MIN (>=60); GLOBULIN 2.8 G/DL (2.5-4.1); POTASSIUM, SERUM 4.9 MMOL/L (3.5-5.3); SGOT(AST) 13 U/L (5-40); SGPT(ALT) 17 U/L (5-65); SODIUM, SERUM 143 MMOL/L (135-148); TOTAL BILIRUBIN 0.3 MG/DL (0-1.2); TOTAL PROTEIN 5.4 G/DL (6.0-8.5)
[2016-11-16 06:54] LABS: GLUCOSE, SERUM 184 MG/DL (60-99)
[2016-11-16] MEDS ORDERED: NORV10 PO (11:26)
[2016-11-16 12:21] LABS: HEMATOCRIT 30.2 % (40.0-51.0)
[2016-12-06] MEDS ORDERED: L40 PO (11:42)
[2017-01-10] MEDS ORDERED: HALF81 PO (17:15)
[2017-01-10] MEDS ORDERED: VOLTAREN1 % TOP (17:16)
[2017-01-10] MEDS ORDERED: SYSTANE OPH (17:18)
== END 2016-11-16 12:28 | disposition home health service (06) | DRG 377 ==
LOC: ER 08:43 → CCU 13:40 → 2SO 11-14 18:03
PROVIDERS: Hospitalist; Internal Medicine; Internal Medicine Critical Care Medicine; Internal Medicine Gastroenterology
PROC: 0DJ08ZZ Inspection of Upper Intestinal Tract, Via Natural or Artificial Opening Endoscopic (ICD-10-PCS; 2016-11-09)
PROC: 30233N1 Transfusion of Nonautologous Red Blood Cells into Peripheral Vein, Percutaneous Approach (ICD-10-PCS; 2016-11-09)
PROC: B41B1ZZ Fluoroscopy of Other Intra-Abdominal Arteries using Low Osmolar Contrast (ICD-10-PCS; 2016-11-10)
PROC: B4141ZZ Fluoroscopy of Superior Mesenteric Artery using Low Osmolar Contrast (ICD-10-PCS; 2016-11-10)
PROC: 0DJ08ZZ Inspection of Upper Intestinal Tract, Via Natural or Artificial Opening Endoscopic (ICD-10-PCS; principal; 2016-11-11 14:24)
DX: K26.4 Chronic or unspecified duodenal ulcer with hemorrhage (principal); K56.2 Volvulus; N17.9 Acute kidney failure, unspecified; E11.22 Type 2 diabetes mellitus with diabetic chronic kidney disease; N18.3 Chronic kidney disease, stage 3 (moderate); R00.1 Bradycardia, unspecified; D62 Acute posthemorrhagic anemia; J44.9 Chronic obstructive pulmonary disease, unspecified; K31.89 Other diseases of stomach and duodenum; K29.70 Gastritis, unspecified, without bleeding; Z86.73 Personal history of transient ischemic attack (TIA), and cerebral infarction without residual deficits; K44.9 Diaphragmatic hernia without obstruction or gangrene; I25.10 Atherosclerotic heart disease of native coronary artery without angina pectoris; I25.5 Ischemic cardiomyopathy; I44.0 Atrioventricular block, first degree; I12.9 Hypertensive chronic kidney disease with stage 1 through stage 4 chronic kidney disease, or unspecified chronic kidney disease; E11.3599 Type 2 diabetes mellitus with proliferative diabetic retinopathy without macular edema, unspecified eye; M35.3 Polymyalgia rheumatica; N40.0 Benign prostatic hyperplasia without lower urinary tract symptoms; F32.9 Major depressive disorder, single episode, unspecified; Z95.1 Presence of aortocoronary bypass graft; Z79.52 Long term (current) use of systemic steroids; Z98.890 Other specified postprocedural states
CPT/HCPCS: 36245; 36415; 71010; 74246; 75726; 78278; 80048; 80053; 80069; 82330; 82607; 82728; 82746; 82947; 82962; 83540; 83550; 83615; 83735; 84100; 85014; 85018; 85025; 85045; 85610; 85730; 86677; 86850; 86870; 86880; 86900; 86901; 86920; 86922; 87641; 93005; 96374; 97161-GP; 99291; A9270-GY; A9560; C1769; C1887; C1894; C9113; G8978-CJ-GP; G8979-CJ-GP; G8980-CI-GP; J1720; J2405; J3486; P9016; Q9967

== ENCOUNTER 2016-12-19 10:58 | Day surgery (SDC) | payer MEDICARE, OTHER ==
--- NOTE | ~2016-12-19 | EGD ---
EGD REPORT [facility] [address] [place]. [address] NAME: RENE ARIZA : 36 STATUS : REG [facility]#: [id number] AGE: 76 ADM/REG DATE : 12/19/16 MR#: [id number] REPORT SERV DATE: 12/19/16 DICTATED BY: CARLOS ENRIQUE EDGAR DATE: 12/19/16 REPORT STATUS : Draft TRANSCRIBED BY: [facility] DATE: 12/19/16 Endoscopy Center Patient Name: Rene Ariza Date of : 1940 Attending MD: CARLOS ENRIQUE EDGAR MD Procedure Date No Time: 12/19/2016 Procedure: Upper GI endoscopy Indications: Follow-up of acute duodenal ulcer with hemorrhage and obstruction Referring MD: ULISSES RESTREPO, EUGENIE TABOR III, MD, CARLOS ABRAHAM Medicines: Propofol per Anesthesia Complications: No immediate complications. Estimated blood loss: None. Procedure: Pre-Anesthesia Assessment: - After reviewing the risks and benefits, the patient was deemed in satisfactory condition to undergo the procedure. - Prior to the procedure, a History and Physical was performed, and patient medications and allergies were reviewed. The patient's tolerance of previous anesthesia was also reviewed. The risks and benefits of the procedure and the sedation options and risks were discussed with the patient. All questions were answered, and informed consent was obtained. Prior Anticoagulants: The patient has taken no previous anticoagulant or antiplatelet agents. ASA Grade Assessment: III - A patient with severe systemic disease. After reviewing the risks and benefits, the patient was deemed in satisfactory condition to undergo the procedure. After obtaining informed consent, the endoscope was passed under direct vision. Throughout the procedure, the patient's blood pressure, pulse, and oxygen saturations were monitored continuously. The GIF [id number] was introduced through the mouth, and advanced to the third part of duodenum. The upper GI endoscopy was accomplished without difficulty. The patient tolerated the procedure well. Findings: The examined esophagus was normal. A large hiatus hernia was present. Medium-sized scar and granulation tissue was found in the duodenal bulb at the apex at the site of the prior ulcer. The 2nd part of the duodenum and 3rd part of the duodenum were normal. EGD REPORT [address] [address] NAME: RENE ARIZA : [birth year] STATUS : REG [facility] PAT#: [id number] AGE: 76 ADM/REG DATE : 12/19/16 MR#: [id number] REPORT SERV DATE: 12/19/16 DICTATED BY: CARLOS ENRIQUE EDGAR DATE: 12/19/16 REPORT STATUS : Draft TRANSCRIBED BY: [facility] DATE: 12/19/16 Impression: - Normal esophagus. - Hiatus hernia. - Healed DU with granulation tissue and scar. - Normal 2nd part of the duodenum and 3rd part of the duodenum. Recommendation: - Discharge patient to home (ambulatory). - Resume previous diet. - Continue Prilosec (omeprazole) 40 mg daily before meal. - OK to resume Plavix (clopidogrel) from GI standpoint. - Return to GI clinic PRN. - Patient has a contact number available for emergencies. The signs and symptoms of potential delayed complications were discussed with the patient. Return to normal activities tomorrow. Written discharge instructions were provided to the patient. Procedure Code(s): --- Professional --- 21483, Esophagogastroduodenoscopy, flexible, transoral; diagnostic, including collection of specimen(s) by brushing or washing, when performed (separate procedure) Diagnosis Code(s): --- Professional --- K44.9, Diaphragmatic hernia without obstruction or gangrene K31.89, Other diseases of stomach and duodenum K26.0, Acute duodenal ulcer with hemorrhage CPT copyright 2013 [employer]. All rights reserved. The codes documented in this report are preliminary and upon housekeeping and laundry team leader review may be revised to meet current compliance requirements. CARLOS ENRIQUE EDGAR MD 12/19/2016 12:12 PM This report has been signed electronically. Number of Addenda: 0 Note Initiated On: 12/19/2016 11:52 AM Scope Withdrawal Time 0 hours 0 minutes 0 seconds [id number] [place] [address] [id number]
[~2016-12-19 10:58] MED LIST changes: +EYE INJECTION IJ; +FERROUS GLUCONATE PO; +NORV10 PO
[2017-01-10] MEDS ORDERED: HALF81 PO (17:15)
[2017-01-10] MEDS ORDERED: VOLTAREN1 % TOP (17:16)
[2017-01-10] MEDS ORDERED: SYSTANE OPH (17:18)
== END 2016-12-19 23:59 | disposition home or self-care (01) ==
LOC: DMU 10:58
PROVIDERS: Internal Medicine Gastroenterology
PROC: 0DJ08ZZ Inspection of Upper Intestinal Tract, Via Natural or Artificial Opening Endoscopic (ICD-10-PCS; principal; 2016-12-19 12:15)
DX: Z09 Encounter for follow-up examination after completed treatment for conditions other than malignant neoplasm (principal); K44.9 Diaphragmatic hernia without obstruction or gangrene; I25.10 Atherosclerotic heart disease of native coronary artery without angina pectoris; K21.9 Gastro-esophageal reflux disease without esophagitis; I11.0 Hypertensive heart disease with heart failure; I50.9 Heart failure, unspecified; E11.9 Type 2 diabetes mellitus without complications; E78.00 Pure hypercholesterolemia, unspecified; M35.3 Polymyalgia rheumatica; M19.90 Unspecified osteoarthritis, unspecified site; F17.210 Nicotine dependence, cigarettes, uncomplicated; F41.9 Anxiety disorder, unspecified; F32.9 Major depressive disorder, single episode, unspecified; N40.0 Benign prostatic hyperplasia without lower urinary tract symptoms; Q60.0 Renal agenesis, unilateral; H91.90 Unspecified hearing loss, unspecified ear; Z87.19 Personal history of other diseases of the digestive system; Z86.73 Personal history of transient ischemic attack (TIA), and cerebral infarction without residual deficits; Z85.528 Personal history of other malignant neoplasm of kidney; Z95.1 Presence of aortocoronary bypass graft; Z96.1 Presence of intraocular lens; Z95.5 Presence of coronary angioplasty implant and graft; Z90.89 Acquired absence of other organs; Z90.49 Acquired absence of other specified parts of digestive tract; Z90.5 Acquired absence of kidney; Z79.4 Long term (current) use of insulin; Z79.52 Long term (current) use of systemic steroids; Z79.899 Other long term (current) drug therapy; Z98.890 Other specified postprocedural states
CPT/HCPCS: 82962

== ENCOUNTER 2017-01-10 17:28 | Inpatient (IN) | payer MEDICARE, OTHER ==
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
--- NOTE | ~2017-01-10 | HP ---
History And Physical [address] [address] NAME: LISA ARIZA : 36 STATUS : ADM IN [facility]#: [id number] AGE: 76 ADM/REG DATE : 01/10/17 MR#: [id number] REPORT SERV DATE: 01/11/17 DICTATED BY: CARLOS ROSA DATE: 01/11/17 REPORT STATUS : Draft TRANSCRIBED BY: MODL DATE: 01/11/17 DATE OF ADMISSION: 01/10/2017 CHIEF COMPLAINT: Dizziness and shortness of breath. HPI: 76-year-old man, known to me from prior care and followed by Dr. Olsen, has history of coronary artery disease with 01/19 presentation with angina and proximal LAD stenosis then treated with 3.0 x 12 Taxus stent and mid AV groove circumflex stenosis treated with 2.5 x 12 Taxus stent, 09/30 progression of coronary artery disease and presentation with angina with CABG consisting of CARROLL to LAD, SVG to OM-1, SVG to diagonal 2 (Dr. Cook). The patient had [id number] FL in the setting of acute blood loss anemia presumed to be type 2 FL, 07/2015. The patient's cardiovascular history is further remarkable for variable LV systolic impairment with 09/02 echo estimating normal LV systolic function, grade 1 diastolic dysfunction, chronic kidney disease with 04/02 EGFR 26, bifascicular block, hypertension, carotid disease with left body stroke following CABG, and type 2 diabetes. The patient is admitted now with lightheadedness and increasing shortness of breath and lower extremity edema without chest pain. PAST MEDICAL HISTORY: 1. Variable LV systolic impairment with LVEF estimated to be in the 40-45% range historically but 09/02 normal LV systolic function. 2. Status post right nephrectomy. 3. Chronic kidney disease class 3. 4. Hypertension. 5. Bifascicular block. 6. Carotid disease with left body stroke. 7. Episodic hyperkalemia. 8. Polymyalgia rheumatica. 9. Dyslipidemia. 10.Cigarette smoking. 11.Coronary artery disease-percutaneous and surgical revascularization as defined above. MEDICATIONS: Aspirin 81 mg daily, atorvastatin 80 mg daily, carvedilol 3.125 mg b.i.d., citalopram 20 mg daily, cholecalciferol 1000 units daily, heparin 5000 units subcu q.12, insulin corrected dosing, pantoprazole 40 mg daily, prednisone 5 mg daily, loratadine 10 mg daily. ALLERGIES: NKDA. 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 He smokes up to a pack a day. He does not drink alcohol. He is . FAMILY HISTORY: No first-degree relatives with history of premature coronary artery disease. History And Physical [address] [address] NAME: LISA ARIZA : 38 STATUS : ADM IN PAT#: [id number] AGE: 76 ADM/REG DATE : 01/10/17 MR#: [id number] REPORT SERV DATE: 01/11/17 DICTATED BY: CARLOS ROSA DATE: 01/11/17 REPORT STATUS : Draft TRANSCRIBED BY: MARBELLA DATE: 01/11/17 REVIEW OF SYSTEMS: Unremarkable. PHYSICAL EXAMINATION: GENERAL: No acute distress. VITAL SIGNS: 155/67, pulse 66 and regular, 98.1, respirations 18. NECK: No JVD. No carotid bruit. LUNGS: Diminished breath sounds throughout. CARDIAC: II/ systolic murmur. ABDOMEN: Benign. EXTREMITIES: +2/4 bilateral pretibial pitting edema. LABORATORY DATA: BUN and creatinine 64 and 2.62, yielding EGFR 26. Glucose 438. Troponin-I 0.09 and 0.06. White blood cell count 4000, hematocrit 26.8%, platelet count 386. BNP 1018. DIAGNOSTIC STUDIES: EKG, sinus rhythm with right bundle-branch block and presumed arm lead reversal. ASSESSMENT AND PLAN: 1. Probable acute LV failure, may be combined systolic and diastolic. Fluid retention due to renal insufficiency is likely. Adding Lasix 40 mg daily. We will check BMP. Adding losartan 50 mg daily. 2. Coronary artery disease-no angina. Minimal troponin-I bump in the setting of renal insufficiency is of uncertain significance. 3. Chronic kidney disease-noted. 4. Diabetes mellitus type 2-markedly elevated blood glucose of 438 is noted. Defer to hospitalist. 5. Hypercholesteremia-treated. 6. Carotid disease-asymptomatic and on aspirin. 7. Bifascicular block-noted. /MODL Carlos Rosa M.D. / [id number] CC: Anastasiya Radford M.D.
--- NOTE | ~2017-01-10 | DS ---
Discharge Summary [facility] [address] [place]. [address] NAME: LISA ARIZA : 36 STATUS : DIS IN PAT#: [id number] AGE: 76 ADM/REG DATE : 01/10/17 MR#: [id number] REPORT SERV DATE: 01/25/17 DICTATED BY: CARLOS ROSA DATE: 01/24/17 REPORT STATUS : Draft TRANSCRIBED BY: MARBELLA DATE: 01/24/17 Data Collection from hospitalization DISCHARGE DIAGNOSIS(ES): 1. Acute/chronic left ventricular diastolic heart failure -- resolved. 2. Coronary artery disease. 3. 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 4. Type 2 diabetes mellitus. 5. Hypercholesterolemia. 6. Carotid disease. 7. Bifascicular block. 8. Bradycardia. 9. Hypertension. 10.Polymyalgia rheumatica. 11.Dyslipidemia. 12.Tobacco use. CONSULTATIONS: Marcell Palomo M.D. and Ozzy Delacruz M.D. PROCEDURES PERFORMED: None. MEDICATIONS: Aspirin 81 mg daily, Lipitor 80 mg at bedtime, vitamin D 1000 units daily, Celexa 20 mg daily, Voltaren one application topically as needed, Apresoline 25 mg every eight hours, NovoLog injection insulin subcutaneously before meals, Lantus 10 units subcutaneously twice a day, Xyzal 5 mg daily, Prilosec 40 mg twice a day, Systane solution one drop as needed, Deltasone 5 mg daily. He was instructed not to continue furosemide. CONDITION AT DISCHARGE: Stable. DISPOSITION: The patient was discharged home to be followed by home health care and on an 1800-calorie low-sodium, diabetic diet with activities as instructed. He would follow up with Dr. Carlos Rosa in one to two weeks following discharge. He would follow up with Dr. Billie Olsen in seven days following discharge. He would follow up with Dr. Russell Lincoln in one to two weeks following discharge. HOSPITAL COURSE: This is a 76-year-old man who has coronary artery disease. He had presented with lightheadedness and increasing shortness of breath and lower extremity edema without chest pain. He has a history of coronary artery disease and is status post coronary artery bypass grafting. He also has systolic congestive heart failure. EKG revealed sinus rhythm with right bundle-branch block and presumed arm lead reversal. Creatinine level was 2.62. The patient was admitted to the hospital at this time for further evaluation and treatment. Upon admission, the patient was felt to have probable acute left ventricular failure, which may be combined systolic and diastolic. Fluid retention was felt due to renal insufficiency. Lasix was added. BMP was going to be checked. Losartan was added. He was seen in consultation by Dr. Ozzy Delacruz. The patient had been seen in October of this year with a GI bleed and a duodenal ulcer. He had been taken off his Plavix and seen to improve, Discharge Summary [facility] [address] [place] [address] NAME: LISA ARIZA : 36 STATUS : DIS IN PAT#: [id number] AGE: 76 ADM/REG DATE : 01/10/17 MR#: [id number] REPORT SERV DATE: 01/25/17 DICTATED BY: CARLOS ROSA DATE: 01/24/17 REPORT STATUS : Draft TRANSCRIBED BY: MARBELLA DATE: 01/24/17 but apparently this had been very stressful turn of events for the patient and his family. In November of this year, he had a followup upper endoscopy, which showed resolution of his ulcers, but when a discussion was made about resuming his Plavix, the patient apparently weighed the benefits and risks and wanted to avoid ever having a GI bleed or other bleeding complication again, and he elected to stop the Plavix altogether. Over the last three to four days prior to this admission, he had developed progressively worsening lower extremity edema and abdominal swelling. It had gotten to the point where his legs felt weird and were stretched. He said it was very uncomfortable and made it difficult to even bear weight at times. He said that his legs and abdomen were so tight that he could not get his breeches on. He denies any shortness of breath other than his chronic dyspnea on exertion. He had no orthopnea, paroxysmal nocturnal dyspnea, but did have worsening morning time cough productive of clear white sputum, which would resolve within 30 or 40 minutes of waking up. Home health care had been checking on the patient. They may have noticed some weight gain. He had not had any chest pain and no chest heaviness. He claims that his diabetes is under good control. It had been monitored more closely by home health care and on the morning of this admission, he had a blood sugar of 85. Initial blood sugar here in the emergency department was 28. He had complained of increasing and worsening chronic arthritis. He believes there is swelling and discomfort around his shoulders, elbows, arms, wrists, and fingers on the left side more than the right. Arthritis certainly seem to affect his upper extremity more than his lower. He describes about a 6/10 severity discomfort that is always present. The patient smokes on a daily basis. He was felt to have presumptive systolic congestive heart failure exacerbation. Echocardiogram was going to be rechecked. He was placed on IV Bumex/Lasix and low-dose Coreg. NEVIN inhibitor was held and ARB secondary to worsening kidney disease. A bladder scan was going to be checked to rule out obstruction and a postvoid residual would be checked. The patient has a history of solitary kidney secondary to nephrectomy for renal cell carcinoma. In September 2016, his hemoglobin A1c was 13.6. We would continue basal insulin and sliding scale insulin. Postvoid residual via bladder scanner revealed the value to be less than 135 mL of urine in the bladder. The following day, he requested that the O2 be taken out. He had crackles in his bilateral lungs. He had 2+ lower extremity edema. Levemir was increased. He was going to undergo diabetes education. Echocardiogram was performed. On 01/12/2017, he had no edema. Creatinine level was 2.53. He was seen by Dr. Marcell Palomo regarding acute kidney injury on chronic kidney disease as well as a history of cardiorenal syndrome with recurrent volume overload on admission. The patient continued to have some difficulty with blood glucose control. Most recent portable chest x-ray showed increased pulmonary vasculature congestion with interstitial edema. The patient was felt to have stage 3-stage 4 chronic kidney disease. He had received some Lasix and his lower extremity edema had improved. His chest x-ray continued to suggest that he was experiencing some level of chronic congestion and would benefit from further diuresis. IV Bumex was going to be given with IV albumin. He was going to interrupt the losartan as the patient did show elevated creatinine outside of his normal baseline. Sodium restriction was going to be started as well as fluid restriction. Levemir was increased. Acute on chronic systolic heart failure was resolving. He said he was feeling better. He was in a sinus rhythm. He was encouraged to ambulate. Aspirin was continued. On 01/13/2017, he had no new complaints. He had trace bilateral lower extremity edema. Entresto was started. Aspirin was continued. ARB was stopped. He had an episode of Discharge Summary [address] [place]. [address] NAME: LISA ARIZA : 38 STATUS : DIS IN PAT#: [id number] AGE: 76 ADM/REG DATE : 01/10/17 MR#: [id number] REPORT SERV DATE: 01/25/17 DICTATED BY: CARLOS ROSA DATE: 01/24/17 REPORT STATUS : Draft TRANSCRIBED BY: MODL DATE: 01/24/17 hypoglycemia that morning. Levemir was decreased. He underwent diabetes education. The following day, he had no new complaints. He did develop some orthostatic hypotension. Discharge planning was performed. On 01/15/2017, he was in no acute distress. He said he felt well. Hydralazine was added. Torsemide and isosorbide mononitrate had been stopped. Discharge instructions were given. Due to his improved and stable condition, he was discharged home with the above-stated instructions. Information collected by: Anita Chance I submit the above information as my discharge summary. AVTAR/MARBELLA Carlos Rosa M.D. / [id number] CC: Anastasiya Radford M.D. Stuart G Ginther, M.D.
[2017-01-10 15:18] LABS: BASOPHILS 0.2 %; BASOPHILS ABSOLUTE 0.02 10/3/uL (0.0-0.16); EOSINOPHILS 1.8 %; EOSINOPHILS ABSOLUTE 0.18 10/3/uL (0.0-0.53); HEMATOCRIT 28.9 % (40.0-51.0); HEMOGLOBIN 9.4 g/dL (13.6-17.8); IMMATURE GRANULOCYTES 0.2 %; IMMATURE GRANULOCYTES ABSOLUTE 0.02 10/3/uL (0.0-0.11); LYMPHOCYTES 27.2 %; MEAN CORPUS HGB CONC 32.5 g/dL (32.0-36.0); MEAN CORPUSCULAR HEMOGLOB 29.1 pg (26.0-34.0); MEAN PLATELET VOLUME 8.7 fL (9.2-13.0); MONOCYTES 10.8 %; MONOCYTES ABSOLUTE 1.11 10/3/uL (0.21-1.20); NEUTROPHILS 59.8 %; NEUTROPHILS ABSOLUTE 6.15 10/3/uL (2.02-8.40); PLATELET COUNT 371 10/3/uL (150-400); RBC DISTRIBUTION WIDTH 15.9 % (12.0-16.0); RED CELL COUNT 3.23 10/6/uL (4.7-6.1); WHITE BLOOD CELLS 10.3 10/3/uL (4.5-10.5)
[2017-01-10 15:20] LABS: MANUAL DIFF NO %; MEAN CORPUSCULAR VOLUME 89.5 fL (80-100)
[2017-01-10 15:25] LABS: INTERNATIONAL NORMAL RATI 1.2 UNITS (-); PARTIAL THROMBO TIME 29.3 SEC (22.5-37.2); PROTIME (NOT ORD) 14.9 SEC (12.0-14.5)
[2017-01-10 15:36] LABS: CALCIUM, SERUM 9.1 MG/DL (8.5-10.4); CHLORIDE, SERUM 112 MMOL/L (96-112); CO2 (CARBON DIOXIDE) 22 MMOL/L (24-34); CREATININE 2.37 MG/DL (0.70-1.30); GFR AFRICAN AMERICAN 29 ML/MIN (>=60); GFR NON AFRICAN AMERICAN 25 ML/MIN (>=60); POTASSIUM, SERUM 4.7 MMOL/L (3.5-5.3); SODIUM, SERUM 144 MMOL/L (135-148)
[2017-01-10 15:37] LABS: BUN (BLOOD UREA NITROGEN) 57 MG/DL (6-23); CHEST PAIN PROFILE TAT 0 Hrs 23 Mins; GLUCOSE, SERUM 28 MG/DL (60-99); TROPONIN I 0.09 NG/ML (<0.05)
[2017-01-10 16:59] LABS: ALLENS TEST Pos; BE (BASE EXCESS) -5.9 MEQ/L (0 +/- 2.5); CARBOXYHEMOGLOBIN 4.3 % (0-3); HCO3 (ACTUAL BICARBONATE) 18.9 MEQ/L (23-27); HEMOBLOGIN CONTENT 9.3 G/DL (14-18); INSTRUMENT SERIAL # 8087; METHEMOGLOBIN 0.3 % (0-3); O2 CONTENT 11.2 VOL% (18-24); OPERATOR ID 14335; PCO2 (CO2 TENSION) 34 MMHG (35-45); PO2 (O2 TENSION) 61 MMHG (79-93); SAMPLE Arterial; pH 7.36 (7.37-7.43)
[~2017-01-10 17:28] MED LIST changes: +HALF81 PO; +VOLTAREN1 % TOP
[2017-01-11 06:12] LABS: BASOPHILS 0 %; EOSINOPHILS 0 %; HEMATOCRIT 26.8 % (40.0-51.0); HEMOGLOBIN 8.7 g/dL (13.6-17.8); IMMATURE GRANULOCYTES 0.2 %; IMMATURE GRANULOCYTES ABSOLUTE 0.01 10/3/uL (0.0-0.11); LYMPHOCYTES 14.6 %; LYMPHOCYTES ABSOLUTE 0.59 10/3/uL (0.67-4.30); MEAN CORPUS HGB CONC 32.5 g/dL (32.0-36.0); MEAN CORPUSCULAR HEMOGLOB 29.1 pg (26.0-34.0); MEAN CORPUSCULAR VOLUME 89.6 fL (80-100); MEAN PLATELET VOLUME 9.5 fL (9.2-13.0); MONOCYTES 2.2 %; MONOCYTES ABSOLUTE 0.09 10/3/uL (0.21-1.20); NEUTROPHILS ABSOLUTE 3.34 10/3/uL (2.02-8.40); PLATELET COUNT 386 10/3/uL (150-400); RBC DISTRIBUTION WIDTH 15.9 % (12.0-16.0); RED CELL COUNT 2.99 10/6/uL (4.7-6.1)
[2017-01-11 06:16] LABS: MANUAL DIFF NO %
[2017-01-11 06:17] LABS: INTERNATIONAL NORMAL RATI 1.2 UNITS (-); PROTIME (NOT ORD) 14.9 SEC (12.0-14.5)
[2017-01-11 06:18] LABS: PARTIAL THROMBO TIME 27.8 SEC (22.5-37.2)
[2017-01-11 06:34] LABS: ALBUMIN 2.8 G/DL (3.5-5.0); CALCIUM, SERUM 8.9 MG/DL (8.5-10.4); CHLORIDE, SERUM 108 MMOL/L (96-112); CO2 (CARBON DIOXIDE) 21 MMOL/L (24-34); CPK 48 U/L (0-200); CREATININE 2.62 MG/DL (0.70-1.30); GFR AFRICAN AMERICAN 26 ML/MIN (>=60); GFR NON AFRICAN AMERICAN 22 ML/MIN (>=60); POTASSIUM, SERUM 5.1 MMOL/L (3.5-5.3); SGOT(AST) 16 U/L (5-40); SGPT(ALT) 28 U/L (5-65); SODIUM, SERUM 140 MMOL/L (135-148); TOTAL BILIRUBIN 0.3 MG/DL (0-1.2)
[2017-01-11 06:36] LABS: A/G RATIO 0.6 (0.7-1.9); BUN (BLOOD UREA NITROGEN) 64 MG/DL (6-23); GLOBULIN 4.4 G/DL (2.5-4.1); GLUCOSE, SERUM 438 MG/DL (60-99); TOTAL PROTEIN 7.2 G/DL (6.0-8.5)
[2017-01-11 06:37] LABS: ALKALINE PHOSPHATASE 178 U/L (45-117); CK-MB 2.1 NG/ML; TROPONIN I 0.06 NG/ML (<0.05); ULTRASENSITIVE TSH 0.502 MCIU/ML (0.358-3.740)
[2017-01-12 05:21] LABS: BASOPHILS 0.2 %; BASOPHILS ABSOLUTE 0.02 10/3/uL (0.0-0.16); EOSINOPHILS 0.1 %; EOSINOPHILS ABSOLUTE 0.01 10/3/uL (0.0-0.53); HEMATOCRIT 25.3 % (40.0-51.0); HEMOGLOBIN 8.2 g/dL (13.6-17.8); IMMATURE GRANULOCYTES 0.2 %; IMMATURE GRANULOCYTES ABSOLUTE 0.03 10/3/uL (0.0-0.11); LYMPHOCYTES 15.7 %; MEAN CORPUS HGB CONC 32.4 g/dL (32.0-36.0); MEAN CORPUSCULAR HEMOGLOB 28.9 pg (26.0-34.0); MEAN CORPUSCULAR VOLUME 89.1 fL (80-100); MEAN PLATELET VOLUME 9.5 fL (9.2-13.0); MONOCYTES 9.9 %; NEUTROPHILS 73.9 %; NEUTROPHILS ABSOLUTE 8.98 10/3/uL (2.02-8.40); PLATELET COUNT 360 10/3/uL (150-400); RBC DISTRIBUTION WIDTH 15.8 % (12.0-16.0); RED CELL COUNT 2.84 10/6/uL (4.7-6.1)
[2017-01-12 05:24] LABS: MANUAL DIFF NO %; WHITE BLOOD CELLS 12.1 10/3/uL (4.5-10.5)
[2017-01-12 05:32] LABS: ALBUMIN 2.9 G/DL (3.5-5.0); BUN (BLOOD UREA NITROGEN) 73 MG/DL (6-23); CHLORIDE, SERUM 110 MMOL/L (96-112); CO2 (CARBON DIOXIDE) 22 MMOL/L (24-34); CREATININE 2.53 MG/DL (0.70-1.30); GFR AFRICAN AMERICAN 27 ML/MIN (>=60); GFR NON AFRICAN AMERICAN 23 ML/MIN (>=60); GLUCOSE, SERUM 254 MG/DL (60-99); POTASSIUM, SERUM 4.5 MMOL/L (3.5-5.3); SODIUM, SERUM 143 MMOL/L (135-148)
[2017-01-12 05:33] LABS: PHOSPHORUS, SERUM 3.9 MG/DL (2.5-4.5)
[2017-01-13 04:52] LABS: BUN (BLOOD UREA NITROGEN) 73 MG/DL (6-23); CALCIUM, SERUM 8.5 MG/DL (8.5-10.4); CHLORIDE, SERUM 109 MMOL/L (96-112); CO2 (CARBON DIOXIDE) 25 MMOL/L (24-34); CREATININE 2.69 MG/DL (0.70-1.30); GFR AFRICAN AMERICAN 25 ML/MIN (>=60); GFR NON AFRICAN AMERICAN 22 ML/MIN (>=60); POTASSIUM, SERUM 4.3 MMOL/L (3.5-5.3); SODIUM, SERUM 142 MMOL/L (135-148)
[2017-01-13 04:57] LABS: GLUCOSE, SERUM 160 MG/DL (60-99)
[2017-01-13 16:55] LABS: ASCORBIC ACID (UR NOT ORDER) NEG (NEG); BILIRUBIN, URINE NEGATIVE (NEG); KETONE, URINE NEGATIVE (NEG); LEUKOCYTE ESTERASE(NOT OR NEG (NEG); WBC (NOT ORDERED) (RFLEX) 1 (0-5)
[2017-01-14 06:00] LABS: BASOPHILS 0.5 %; BASOPHILS ABSOLUTE 0.04 10/3/uL (0.0-0.16); EOSINOPHILS 3.3 %; EOSINOPHILS ABSOLUTE 0.27 10/3/uL (0.0-0.53); IMMATURE GRANULOCYTES 0.1 %; IMMATURE GRANULOCYTES ABSOLUTE 0.01 10/3/uL (0.0-0.11); LYMPHOCYTES 32.1 %; MEAN CORPUS HGB CONC 32.6 g/dL (32.0-36.0); MEAN CORPUSCULAR HEMOGLOB 28.6 pg (26.0-34.0); MEAN CORPUSCULAR VOLUME 87.9 fL (80-100); MEAN PLATELET VOLUME 9.9 fL (9.2-13.0); MONOCYTES 12.9 %; MONOCYTES ABSOLUTE 1.04 10/3/uL (0.21-1.20); NEUTROPHILS 51.1 %; NEUTROPHILS ABSOLUTE 4.13 10/3/uL (2.02-8.40); PLATELET COUNT 419 10/3/uL (150-400); RBC DISTRIBUTION WIDTH 15.5 % (12.0-16.0); WHITE BLOOD CELLS 8.1 10/3/uL (4.5-10.5)
[2017-01-14 06:02] LABS: HEMATOCRIT 30.4 % (40.0-51.0); HEMOGLOBIN 9.9 g/dL (13.6-17.8); MANUAL DIFF NO %; RED CELL COUNT 3.46 10/6/uL (4.7-6.1)
[2017-01-14 06:12] LABS: ALBUMIN 2.8 G/DL (3.5-5.0); BUN (BLOOD UREA NITROGEN) 75 MG/DL (6-23); CALCIUM, SERUM 8.5 MG/DL (8.5-10.4); CHLORIDE, SERUM 107 MMOL/L (96-112); CO2 (CARBON DIOXIDE) 27 MMOL/L (24-34); CREATININE 2.47 MG/DL (0.70-1.30); GFR AFRICAN AMERICAN 28 ML/MIN (>=60); GFR NON AFRICAN AMERICAN 24 ML/MIN (>=60); GLUCOSE, SERUM 106 MG/DL (60-99); PHOSPHORUS, SERUM 3.7 MG/DL (2.5-4.5); POTASSIUM, SERUM 4.3 MMOL/L (3.5-5.3); SODIUM, SERUM 143 MMOL/L (135-148)
[2017-01-15] MEDS ORDERED: APRES25 PO (14:01)
== END 2017-01-15 15:36 | disposition home or self-care (01) | DRG 291 ==
LOC: ER 17:28 → 7NO 17:57
PROVIDERS: Emergency Medicine; Hospitalist; Internal Medicine Cardiovascular Disease; Registered Nurse
DX: I13.0 Hypertensive heart and chronic kidney disease with heart failure and stage 1 through stage 4 chronic kidney disease, or unspecified chronic kidney disease (principal); I50.23 Acute on chronic systolic (congestive) heart failure; E11.22 Type 2 diabetes mellitus with diabetic chronic kidney disease; N18.4 Chronic kidney disease, stage 4 (severe); N17.9 Acute kidney failure, unspecified; I45.2 Bifascicular block; I69.854 Hemiplegia and hemiparesis following other cerebrovascular disease affecting left non-dominant side; I25.10 Atherosclerotic heart disease of native coronary artery without angina pectoris; Z95.1 Presence of aortocoronary bypass graft; Z95.5 Presence of coronary angioplasty implant and graft; F32.9 Major depressive disorder, single episode, unspecified; Z85.528 Personal history of other malignant neoplasm of kidney; F17.210 Nicotine dependence, cigarettes, uncomplicated; Z79.82 Long term (current) use of aspirin; Z79.4 Long term (current) use of insulin; I69.820 Aphasia following other cerebrovascular disease; M35.3 Polymyalgia rheumatica
CPT/HCPCS: 36600; 71010; 71020; 80048; 80053; 80069; 81001; 82272; 82550; 82553; 82805; 82962; 83735; 83880; 84443; 84484; 85025; 85610; 85730; 87040; 93005; 93306; 94640; 99291; A9270-GY; J2930; P9047